=== PATIENT | female | born 1960 | race Caucasian/White ===

== ENCOUNTER 2020-09-08 11:42 | Inpatient (IN) | payer SELFPAY ==
[~2020-09-08] VITALS: Ht 152.4 cm; Wt 52.6 kg
[2020-09-08] MEDS ORDERED: ASPIRIN 81 MG CHEW TAB PO ONE ×2 (12:15→14:45)
[2020-09-08 12:16] LABS: BASOPHILS # (AUTO) 0.1 (0.0-0.1); BASOPHILS % 0.5 % (0.0-1.0); EOSINOPHILS # (AUTO) 0.1 (0.0-0.4); EOSINOPHILS % 0.8 % (0.0-6.0); HEMATOCRIT 42.1 % (34.2-44.1); HEMOGLOBIN 13.9 g/dL (12.0-16.0); LYMPHOCYTES # (AUTO) 3.1 (1.0-3.2); LYMPHOCYTES % 32.3 % (18.0-39.1); MEAN CORPUSCULAR HEMOGLOBIN 30.5 pg (28-32); MEAN CORPUSCULAR VOLUME 92.5 fL (81-99); MONOCYTES # (AUTO) 0.6 (0.2-0.8); MONOCYTES % 5.9 % (4.4-11.3); NEUTROPHILS # (AUTO) 5.8 (2.1-6.9); NEUTROPHILS % 60.2 % (38.7-80.0); PLATELET COUNT 275 x10e3/uL (140-360); RED BLOOD COUNT 4.55 x10e6/uL (3.6-5.1)
[2020-09-08 12:23] LABS: CLARITY,URINE SL CLOUDY (CLEAR); COLOR,URINE YELLOW (YELLOW); LEUKOCYTE ESTERASE ,URINE SMALL (NEGATIVE); NITRITE,URINE NEGATIVE (NEGATIVE)
[2020-09-08 12:24] LABS: BILIRUBIN,URINE SMALL (NEGATIVE); KETONES,URINE NEGATIVE (NEGATIVE); PROTEIN,URINE DIPSTICK 2+ (NEGATIVE); URINE UROBILINOGEN 1 mg/dL (0.2 - 1)
[2020-09-08 12:25] LABS: BACTERIA,URINE RARE /HPF; EPITHELIAL CELLS,URINE FEW /LPF
[2020-09-08 12:26] LABS: INR 1.11; PROTHROMBIN TIME 14.9 seconds (11.9-14.5)
[2020-09-08 12:27] LABS: PARTIAL THROMBOPLASTIN TIME 28.8 seconds (23.8-35.5)
[2020-09-08 12:40] LABS: ALANINE AMINOTRANSFERASE 27 IU/L (0-55); ALBUMIN 4.2 g/dL (3.5-5.0); ALBUMIN/GLOBULIN RATIO 1.1 (0.8-2.0); ALKALINE PHOSPHATASE 78 IU/L (40-150); ANION GAP 17.9 mmol/L (8-16); BLOOD UREA NITROGEN 13 mg/dL (7-26); BUN/CREATININE RATIO 16 (6-25); CALCIUM 9.1 mg/dL (8.4-10.2); CARBON DIOXIDE 20 mmol/L (22-29); CHLORIDE 105 mmol/L (98-107); CREATINE KINASE 96 IU/L (29-168); CREATININE, SERUM 0.79 mg/dL (0.57-1.11); EST GLOMERULAR FILTRATION RATE > 60 ML/MIN (60-); GLUCOSE 104 mg/dL (74-118); POTASSIUM 3.9 mmol/L (3.5-5.1); SODIUM 139 mmol/L (136-145)
--- NOTE | 2020-09-08 13:12 | Diagnostic Imaging Report ---
TECHNIQUE: Frontal view of the chest. INDICATION: ^CHEST PAIN ^[id number] ^1250 ^Y COMPARISON: None DISCUSSION: Limited evaluation due to portable technique. Lines and hardware: None Heart and mediastinum: Marked cardiomegaly is noted. Normal pulmonary vascularity is noted. Lungs and pleura: No focal airspace consolidation. No pleural effusion. No pneumothorax. Soft tissues and bones: No acute abnormality. IMPRESSION: 1. Negative for focal consolidation. 2. Marked cardiomegaly. Signed by: Rigo Breaux MD on 09/08/2020 1:09 PM
[2020-09-08] MEDS ORDERED: METOPROLOL TARTRATE INJ 1 MG/ML VIAL IV ONE (13:15)
[2020-09-08] MEDS ORDERED: FUROSEMIDE INJ 10 MG/ML 4 ML VIAL IV ONE (13:15)
[2020-09-08] MEDS ORDERED: SODIUM CHLORIDE 0.9% 50ML 50 ML ONE ×2 (13:30→21:47)
[2020-09-08] MEDS ORDERED: IOPAMIDOL 370 MG/ML 200 ML INFUS..BTL INJ ONE (13:30)
--- NOTE | 2020-09-08 13:32 | Emergency Department Note ---
History of Present Illnes History of Present Illness Chief Complaint: Chest Pain History of Present Illness This is a 59 year old female . Chief Complaint Comment Patient in from home with complaints of mid-sternal ches t pain and pressure as well as difficulty breathing when laying down off and on over the last couple of months but got worse lately. Patient reports that she gets short of breath when walking and has been having to sleep sitting up. Patient with a history of hypertension and heart burn. In triage patient denies chest pain/pressure. No acute distress noted. Historian: Patient Arrival Mode: Car Onset (how long ago): day(s) Severity: mild Duration (how long): day(s) Progression: worsening Chronicity: new Relieving factors: none Exacerbating factors: none Past Medical/Family History Physician Review I have reviewed the patient's past medical and family history. Any updates have been documented here. Past Medical History Recent Fever: No Clinical Suspicion of Infectio: No New/Unexplained Change in Ment: No Past Medical History: Hypertension, GERD Past Surgical History: Appendectomy Social History Smoking Cessation: Never Smoker Counseling Performed: No Alcohol Use: Social Review of Systems Review of Systems Constitutional: Reports no symptoms EENTM: Reports no symptoms Cardiovascular: Reports as per HPI, Reports chest pain, Reports edema Respiratory: Reports as per HPI, Reports dyspnea, Reports dyspnea on exertion Gastrointestinal: Reports no symptoms Genitourinary: Reports no symptoms Musculoskeletal: Reports no symptoms Integumentary: Reports no symptoms Neurological: Reports no symptoms Psychological: Reports no symptoms Endocrine: Reports no symptoms Hematological/Lymphatic: Reports no symptoms Physical Exam Related Data Allergies: Coded Allergies: No Known Allergies (Unverified , 09/08/20) Triage Vital Signs Vital Signs Date Time Temp Pulse Resp B/P (MAP) Pulse Ox O2 Delivery O2 Flow Rate FiO2 09/08/20 11:56 97.7 121 16 148/106 100 Room Air Vital signs reviewed: Yes Physical Exam CONSTITUTIONAL Constitutional: Present well-developed, Present well-nourished HENT HENT: Present normocephalic, Present atraumatic, Present oropharynx clear/moist, Present nose normal HENT L/R: Present left ext ear normal, Present right ext ear normal EYES Eyes: Reports PERRL, Reports conjunctivae normal NECK Neck: Present ROM normal PULMONARY Pulmonary: Present effort normal, Present respiratory distress CARDIOVASCULAR Cardiovascular: Present regular rhythm, Present heart sounds normal, Present capillary refill normal, Present normal rate, Present tachycardia GASTROINTESTINAL Abdominal: Present soft, Present nontender, Present bowel sounds normal GENITOURINARY Genitourinary: Present exam deferred SKIN Skin: Present warm, Present dry MUSCULOSKELETAL Musculoskeletal: Present ROM normal NEUROLOGICAL Neurological: Present alert, Present oriented x 3, Present no gross motor or sensory deficits PSYCHOLOGICAL Psychological: Present mood/affect normal, Present judgement normal Results Laboratory Result Diagram: 09/08/20 1200 09/08/20 1200 Laboratory Laboratory Tests Test 09/08/20 12:00 White Blood Count 9.67 x10e3/uL (4.8-10.8) Red Blood Count 4.55 x10e6/uL (3.6-5.1) Hemoglobin 13.9 g/dL (12.0-16.0) Hematocrit 42.1 % (34.2-44.1) Mean Corpuscular Volume 92.5 fL (81-99) Mean Corpuscular Hemoglobin 30.5 pg (28-32) Mean Corpuscular Hemoglobin Concent 33.0 g/dL (31-35) Red Cell Distribution Width 14.0 % (11.7-14.4) Platelet Count 275 x10e3/uL (140-360) Neutrophils (%) (Auto) 60.2 % (38.7-80.0) Lymphocytes (%) (Auto) 32.3 % (18.0-39.1) Monocytes (%) (Auto) 5.9 % (4.4-11.3) Eosinophils (%) (Auto) 0.8 % (0.0-6.0) Basophils (%) (Auto) 0.5 % (0.0-1.0) Neutrophils # (Auto) 5.8 (2.1-6.9) Lymphocytes # (Auto) 3.1 (1.0-3.2) Monocytes # (Auto) 0.6 (0.2-0.8) Eosinophils # (Auto) 0.1 (0.0-0.4) Basophils # (Auto) 0.1 (0.0-0.1) Absolute Immature Granulocyte (auto 0.03 x10e3/uL (0-0.1) Prothrombin Time 14.9 seconds (11.9-14.5) Prothromb Time International Ratio 1.11 Activated Partial Thromboplast Time 28.8 seconds (23.8-35.5) Urine Color Yellow (YELLOW) Urine Clarity Sl cloudy (CLEAR) Urine pH 6 (5 - 7) Urine Specific [place] 1.025 (1.010-1.025) Urine Protein 2+ (NEGATIVE) Urine Glucose (UA) Negative (NEGATIVE) Urine Ketones Negative (NEGATIVE) Urine Blood Trace (NEGATIVE) Urine Nitrite Negative (NEGATIVE) Urine Bilirubin Small (NEGATIVE) Urine Urobilinogen 1 mg/dL (0.2 - 1) Urine Leukocyte Esterase Small (NEGATIVE) Urine RBC 6-10 /HPF (0-5) Urine WBC 6-10 /HPF (0-5) Urine Epithelial Cells Few /LPF (NONE) Urine Bacteria Rare /HPF (NONE) Sodium Level 139 mmol/L (136-145) Potassium Level 3.9 mmol/L (3.5-5.1) Chloride Level 105 mmol/L (98-107) Carbon Dioxide Level 20 mmol/L (22-29) Anion Gap 17.9 mmol/L (8-16) Blood Urea Nitrogen 13 mg/dL (7-26) Creatinine 0.79 mg/dL (0.57-1.11) Estimat Glomerular Filtration Rate > 60 ML/MIN (60-) BUN/Creatinine Ratio 16 (6-25) Glucose Level 104 mg/dL (74-118) Calcium Level 9.1 mg/dL (8.4-10.2) Total Bilirubin 1.6 mg/dL (0.2-1.2) Aspartate Amino Transf (AST/SGOT) 30 IU/L (5-34) Alanine Aminotransferase (ALT/SGPT) 27 IU/L (0-55) Alkaline Phosphatase 78 IU/L (40-150) Creatine Kinase 96 IU/L (29-168) Creatine Kinase MB 4.90 ng/mL (0-5.0) Troponin I 0.022 ng/mL (0-0.300) B-Type Natriuretic Peptide 1596.6 pg/mL (0-100) Total Protein 8.1 g/dL (6.5-8.1) Albumin 4.2 g/dL (3.5-5.0) Globulin 3.9 g/dL (2.3-3.5) Albumin/Globulin Ratio 1.1 (0.8-2.0) Lab results reviewed: Yes Imaging Imaging results reviewed: Yes Impressions IMPRESSION: 1. Negative for pulmonary or secondary signs of right heart strain. 2. Small right pleural effusion. 3. Multichamber cardiomegaly with reflux of contrast into the SVC and hepatic veins suggesting cardiac dysfunction. Signed by: Rigo Breaux MD on 09/08/2020 1:40 PM Assessment & Plan Medical Decision Making MDM This patient presents with signs and symptoms consistent with an acute exacerbation CHF, likely due to a new diagnosis of congestive heart failure. Differential diagnosis includes alternate cardiopulmonary causes such as ischemia, PE, pneumothorax, and pneumonia, as well as other causes of dyspnea such as asthma/RAD, COPD, flash pulmonary edema, dysrhythmia but these are less likely. Patient is generally hemodynamically stable. Plan: labs, EKG, CXR, troponin, intravenous diuresis, and electrolyte repletion. Will require admission for IV diuretics and medical optimization. LVEF Failure + dyspnea +LE edema Workup: ECG, CBC, BMP, Troponin, BNP, CXR Findings: EKG: No STEMI and no evidence of Brugadas sign, delta wave, epsilon wave, significantly prolonged QTc, or malignant arrhythmia. BNP: ~1600 CXR: IMPRESSION: 1. Negative for pulmonary or secondary signs of right heart strain. 2. Small right pleural effusion. 3. Multichamber cardiomegaly with reflux of contrast into the SVC and hepatic veins suggesting cardiac dysfunction. Based on history, exam and findings, presentation most consistent with acute on chronic heart failure. Low suspicion for PNA, ACS, tamponade, aortic dissection. Interventions: Oxygen, Diuresis Reassessment: Symptoms improved in ED with oxygen and diuresis Disposition (Stable but not significantly improved): Admit to medicine for further monitoring and for improvement of medication regimen to control symptoms. Assessment & Plan Final Impression: (1) CHF (congestive heart failure) Depart Disposition: ADMITTED Last Vital Signs Date Time Temp Pulse Resp B/P (MAP) Pulse Ox O2 Delivery O2 Flow Rate FiO2 09/08/20 12:10 121 24 09/08/20 11:56 97.7 100 Room Air Medications in the ED Aspirin 81 mg PRN ONCE PO ; Start 09/08/20 at 12:15; Stop 09/08/20 at 12:24; Status DC Furosemide 40 mg ONCE ONCE IV ; Start 09/08/20 at 13:15; Stop 09/08/20 at 13:16; Status UNV Metoprolol Tartrate 5 mg ONCE ONCE IV ; Start 09/08/20 at 13:15; Stop 09/08/20 at 13:16; Status UNV KANWAL MORAN DO Sep 08, 2020 13:32
--- NOTE | 2020-09-08 13:43 | Diagnostic Imaging Report ---
EXAM: CT Chest WITH contrast- Pulmonary Embolism Protocol INDICATION: ^Y ^SOB ^[id number] ^1300 COMPARISON: X-ray dated the same day TECHNIQUE: Chest was scanned utilizing a multidetector helical scanner from the lung apex through the level of the diaphragm after administration of IV contrast. Thin section reconstructions were obtained with special concentration on the pulmonary arteries. Coronal and sagittal reformations were obtained. Pulmonary embolism protocol was performed. IV CONTRAST: 100 cc of Isovue 370 RADIATION DOSE: Total DLP: 298 mGy*cm Dose modulation, iterative reconstruction, and/or weight based adjustment of the mA/kV was utilized to reduce the radiation dose to as low as reasonably achievable. COMPLICATIONS: None FINDINGS: LINES/ TUBES: None. PULMONARY ARTERIES: Main pulmonary artery demonstrates Hounsfield units of 472. Negative for pulmonary arterial embolism to the level of the subsegmental branches. Main pulmonary artery is of normal caliber measuring up to 2.5 cm. LUNGS AND AIRWAYS: Negative for focal consolidation. Large airways are patent. PLEURA: Small right pleural effusion is noted. HEART AND MEDIASTINUM: Visualized thyroid gland is unremarkable. No suspicious axillary lymphadenopathy is noted. Multiple nonenlarged mediastinal lymph nodes are noted. No definite hilar adenopathy is noted. Multichamber enlargement of the heart is noted. Negative for pericardial effusion. Negative for bowing of the interventricular septum. Reflux of contrast is identified in the SVC and hepatic veins suggesting cardiac dysfunction. UPPER ABDOMEN: Unremarkable. BONES: No acute osseous abnormality. Mild to moderate multilevel degenerative changes of the spine are noted. SOFT TISSUES: Unremarkable. IMPRESSION: 1. Negative for pulmonary or secondary signs of right heart strain. 2. Small right pleural effusion. 3. Multichamber cardiomegaly with reflux of contrast into the SVC and hepatic veins suggesting cardiac dysfunction. Signed by: Rigo Breaux MD on 09/08/2020 1:40 PM
--- OUTSIDE RECORDS SUMMARY | 2020-09-08 14:58 | XMS REPORT | Continuity of Care Document ---
Author Author [facility] t Organization [facility] Address [address] [place] [address] Dr. Sutton [address] [place] [phone] Phone Unavailable Care Team Providers Care Python Engineer Name Role Phone Ca MORAN Unavailable Problems This patient has no known problems. Allergies, Adverse Reactions, Alerts This patient has no known allergies or adverse reactions. Medications This patient has no known medications. Procedures This patient has no known procedures. Results Test Description Test Time Test Comments Results Result Comments Source CT CHEST W 2020-09-08 13:31:00 [facility]ENTERName: RIO ZAVALA : 1960 Sex: F [facility] [address] [place] [address] Patient Name: RIO ZAVALA MR #: [id number] : 1960 Age/Sex: 59/F Req #: [id number] Adm Physician: Ordered by: KANWAL MORAN DO Report #: [id number] Location: ER Room/Bed: Procedure: [id number] CT/CT CHEST W Exam Date: 09/08/20 Exam Time: 1300 REPORT STATUS: Signed EXAM: CT Chest WITH contrast- Pulmonary Embolism Protocol INDICATION: Y SOB [id number] 1300 COMPARISON: X- ray dated the same day TECHNIQUE: Chest was scanned utilizing a multidetector helical scanner from the lung apex through the level of the diaphragm after administration of IV contrast. Thin section reconstructions were obtained with special concentration on the pulmonary arteries. Coronal and sagittal reformations were obtained. Pulmonary embolism protocol was performed. IV CONTRAST: 100 cc of Isovue 370 RADIATION DOSE: Total DLP: 298 mGy*cm Dose modulation, iterative reconstruction, and/or weight based adjustment of the mA/kV was utilized to reduce the radiation dose to as low as reasonably achievable. COMPLICATIONS: None FINDINGS: LINES/ TUBES: None. PULMONARY ARTERIES: Main pulmonary artery demonstrates Hounsfield units of 472. Negative for pulmonary arterial embolism to the level of the subsegmental branches. Main pulmonary artery is of normal caliber measuring up to 2.5 cm. LUNGS AND AIRWAYS: Negative for focal consolidation. Large airways are patent. PLEURA: Small right pleural effusion is noted. HEART AND MEDIASTINUM: Visualized thyroid gland is unremarkable. No suspicious axillary lymphadenopathy is noted. Multiple nonenlarged mediastinal lymph nodes are noted. No definite hilar adenopathy is noted. Multichamber enlargement of the heart is noted. Negative for pericardial effusion. Negative for bowing of the interventricular septum. Reflux of contrast is identified in the SVC and hepatic veins suggesting cardiac dysfunction. UPPER ABDOMEN: Unremarkable. BONES: No acute osseous abnormality. Mild to moderate multilevel degenerative changes of the spine are noted. SOFT TISSUES: Unremarkable. IMPRESSION: 1. Negative for pulmonary or secondary signs of right heart strain. 2. Small right pleural effusion. 3. Multichamber cardiomegaly with reflux of contrast into the SVC and hepatic veins suggesting cardiac dysfunction. Signed by: Dayanna Breaux MD on 09/08/2020 1:40 PM Dictated By: DAYANNA BREAUX MD 1340 Transcribed By: EDVIN on 09/08/20 1340 COPY TO: KANWAL MORAN DO CHEST SINGLE (PORTABLE) 2020-09-08 13:08:00 [facility]: RIO ZAVALA : 1960 Sex: F [facility] [address] [place] [address] Patient Name: RIO ZAVALA MR #: [id number] : 1960 Age/Sex: 59/F Req #: [id number] Adm Physician: Ordered by: KANWAL MORAN DO Report #: [id number] Location: ER Room/Bed: Procedure: [id number] DX/CHEST SINGLE (PORTABLE) Exam Date: 09/08/20 Exam Time: 1250 REPORT STATUS: Signed TECHNIQUE: Frontal view of the ch est. INDICATION: CHEST PAIN [id number] 1250 Y COMPARISON: None DISCUSSION: Limited evaluation due to portable technique. Lines and hardware: None Heart and mediastinum: Marked cardiomegaly is noted. Normal pulmonary vascularity is noted. Lungs and pleura: No focal airspace consolidation. No pleural effusion. No pneumothorax. Soft tissues and bones: No acute abnormality. IMPRESSION: 1. Negative for focal consolidation. 2. Marked cardiomegaly. Signed by: Dayanna Breaux MD on 09/08/2020 1:09 PM Dictated By: DAYANNA BREAUX MD 1308 Transcribed By: EDVIN on 09/08/20 130 COPY TO: KANWAL MORAN,
[2020-09-08] MEDS ORDERED: ONDANSETRON HCL INJ 2MG/ML 2ML 2 MG/ML VIAL IV PRN (15:15)
[2020-09-08] MEDS ORDERED: METOPROLOL TARTRATE INJ 1 MG/ML VIAL IV PRN (15:15)
[2020-09-08] MEDS ORDERED: ACETAMINOPHEN 325 MG TAB PO PRN (15:15)
[2020-09-08] MEDS: FUROSEMIDE INJ 10 MG/ML 4 ML VIAL IV SCH (18:50)
--- NOTE | 2020-09-08 18:52 | NUR ---
1st attempt to give report, as per MS2, nurses are at shift change and are not available to take report
--- NOTE | 2020-09-08 19:12 | NUR ---
2nd attempt to call report, MS2 states that the room is still being actively cleaned at the moment
--- NOTE | 2020-09-08 19:47 | NUR ---
RECEIVED PATIENT FROM THE ER, ON TELEMETRY WITH PULSE OX, PATIENT POSITIONED IN BED, NO COMPLAINT OF PAIN, NO DISTRESS NOTED AT THIS TIME. ASSESSMENT TO BE COMPLETED. CALL LIGHT IN REACH.
[2020-09-08 20:00] VITALS: BP 147/96
[2020-09-08] MEDS: CEFTRIAXONE SOD 1 GM/NS 50 ML 50 ML IV SCH (21:00)
[2020-09-08 21:03] LABS: CREATINE KINASE MB 4.4 ng/mL (0-5.0)
--- NOTE | 2020-09-08 22:00 | NUR ---
REPORT GIVEN TO PM NURSE.
[2020-09-08 23:21] VITALS: BP 147/96
[2020-09-08 23:29] VITALS: BP 147/96
[2020-09-09] VITALS (8 sets, daily range): BP systolic 119–143; BP diastolic 81–108
[2020-09-09 00:07] LABS: CREATINE KINASE MB 3.8 ng/mL (0-5.0)
[2020-09-09 05:06] LABS: BASOPHILS # (AUTO) 0.1 (0.0-0.1); BASOPHILS % 0.6 % (0.0-1.0); EOSINOPHILS # (AUTO) 0.2 (0.0-0.4); EOSINOPHILS % 2.1 % (0.0-6.0); HEMATOCRIT 41.3 % (34.2-44.1); HEMOGLOBIN 13.6 g/dL (12.0-16.0); LYMPHOCYTES # (AUTO) 4.1 (1.0-3.2); LYMPHOCYTES % 43.2 % (18.0-39.1); MEAN CORPUSCULAR HEMOGLOBIN 30.3 pg (28-32); MEAN CORPUSCULAR HGB CONC 32.9 g/dL (31-35); MONOCYTES # (AUTO) 0.7 (0.2-0.8); MONOCYTES % 7.2 % (4.4-11.3); NEUTROPHILS # (AUTO) 4.4 (2.1-6.9); NEUTROPHILS % 46.8 % (38.7-80.0); PLATELET COUNT 249 x10e3/uL (140-360); RED BLOOD COUNT 4.49 x10e6/uL (3.6-5.1); RED CELL DISTRIBUTION WIDTH 13.8 % (11.7-14.4)
[2020-09-09 05:33] LABS: ANION GAP 14.1 mmol/L (8-16); BLOOD UREA NITROGEN 15 mg/dL (7-26); BUN/CREATININE RATIO 21 (6-25); CALCIUM 8.7 mg/dL (8.4-10.2); CARBON DIOXIDE 24 mmol/L (22-29); CHLORIDE 103 mmol/L (98-107); CREATININE, SERUM 0.73 mg/dL (0.57-1.11); EST GLOMERULAR FILTRATION RATE > 60 ML/MIN (60-); GLUCOSE 85 mg/dL (74-118); POTASSIUM 3.1 mmol/L (3.5-5.1); SODIUM 138 mmol/L (136-145)
[2020-09-09] MEDS ORDERED: LISINOPRIL10 MG PO (07:12)
[2020-09-09] MEDS ORDERED: FAMOTIDINE 20 MG TAB PO SCH (07:30)
[2020-09-09] MEDS: POTASSIUM CHLORIDE 20 MEQ TAB CR PO SCH ×2 (09:40→17:19)
[2020-09-09] MEDS: FUROSEMIDE INJ 10 MG/ML 4 ML VIAL IV SCH ×2 (09:40→17:19)
[2020-09-09] MEDS ORDERED: POTASSIUM CHLORIDE 20 MEQ TAB CR PO ONE (09:44)
[2020-09-09] MEDS ORDERED: POLYETHYLENE GLYCOL 3350 17 GM PACK PO PRN (09:45)
[2020-09-09] MEDS ORDERED: TEMAZEPAM 7.5 MG CAP PO PRN (09:45)
--- NOTE | 2020-09-09 11:05 | History and Physical ---
CONSULTING PHYSICIAN: Dr. Gallo Archer with Cardiology. PRIMARY CARE PHYSICIAN: Dr. Julian Glover. CHIEF COMPLAINT: Midsternal chest pain and pressure. HISTORY OF PRESENT ILLNESS: The patient is a 59-year-old female, who states she was having the midsternal chest pain and pressure for about a week off and on, but it was worse the last 2 days prior to admission. She states she felt like "a dinner plate was on my chest." She has had insomnia this past week. No contributing factors, but it is alleviating when she is sitting on the couch and leaning forward. PAST MEDICAL HISTORY: Hypertension, gastroesophageal reflux disease, osteoarthritis, fibromyalgia, and seasonal allergies. PAST SURGICAL HISTORY: Appendectomy. FAMILY HISTORY: Mother had lupus and Raynaud. Father had heart disease. Two daughters, systemic lupus erythematosus. SOCIAL HISTORY: The patient lives with her . She is a homemaker. She denies any previous tobacco use. She was drinking beer on occasion, but quit 2 weeks ago. She was smoking marijuana once a week for sleep, but quit that 3 weeks ago. ALLERGIES: NO KNOWN ALLERGIES. HOME MEDICATIONS: The patient takes lisinopril 10 mg daily. REVIEW OF SYSTEMS: CONSTITUTIONAL: Denies weight loss, fever, chills, problems with eyes, ears, nose, or throat. She wears glasses. RESPIRATORY: She has had dyspnea on exertion. No phlegm or cough. No complaints of genitourinary, psychiatric, or integumentary problems. CARDIOVASCULAR: Aforementioned midsternal chest pain as per history of present illness. Orthopnea as per ER physician's note. Dyspnea on exertion. However, the patient denies having any lower extremity edema. GASTROINTESTINAL: The patient states she has noticed that her stomach has been slightly bloated, some mild fluid retention. She has been eating much and some nausea. Last bowel movement was 09/07. MUSCULOSKELETAL: Slight muscle cramp in the left calf in the past few days. NEUROLOGIC: Mild dizziness. ENDOCRINE: No history of diabetes. HEMATOLOGIC/LYMPHATIC: No complaints of bleeding or bruising. PHYSICAL EXAMINATION: VITAL SIGNS: Temperature 97.7, pulse 103, blood pressure 134/88, respirations 20, and oxygen saturation 97% on room air. Height 5 feet 0, weight 116 pounds, BMI 22.65. GENERAL: No acute distress, supine in bed. Sits up easily. LUNGS: Clear to auscultation. Respiratory pattern even and unlabored. No supplemental oxygen. HEENT: EOMI. Oropharynx clear. NECK: Supple. No lymphadenopathy, thyromegaly, or JVD noted. CARDIOVASCULAR: Regular rate and rhythm. No murmur. ABDOMEN: Bowel sounds positive. Soft and nontender. EXTREMITIES: No pitting edema. No clubbing, cyanosis, or signs of DVT. NEUROLOGICAL: GCS 15. Nonfocal. LABORATORY DATA: B-type natriuretic peptide 1616.5. CBC was within normal limits yesterday and today. PT 14.9, INR 1.11, and PTT 28.8. Chemistry essentially within normal limits, but potassium 3.1 (3.9) after Lasix, BUN 15, creatinine 0.73, and estimated GFR greater than 60. Cardiac enzymes negative x3 sets. Troponin I 0.022, 0.024, and 0.026. Urinalysis; slightly cloudy, 2+ protein, trace amount of blood, negative for nitrite, small amount of leukocyte esterase, rbc 6-10, wbc 6-10, few epithelial cells, rare bacteria. Coronavirus PCR collected 09/08 is pending. Preliminary urine culture shows no growth after 18 to 24 hours. IMAGING: Chest x-ray showed mild cardiomegaly. Negative for focal consolidation. CT of the chest 09/08, showed negative for pulmonary or secondary signs of right heart strain, small right pleural effusion, multi chamber cardiomegaly with reflux of contrast into the superior vena cava and hepatic veins suggesting cardiac dysfunction. ASSESSMENT AND PLAN: 1. Acute congestive heart failure with small right pleural effusion. Awaiting final results of echocardiogram. B-type natriuretic peptide 1616.5. No lower extremity edema noted. The patient is on Lasix 40 mg IV b.i.d. along with potassium 20 mEq b.i.d. Cardiology has been consulted. 2. Hypertension with congestive heart failure. Home dose of lisinopril resumed. The patient also has p.r.n. metoprolol for systolic blood pressure greater than 150. One time dose of metoprolol had been given before likely due to heart rate. 3. Acute hypokalemia. Potassium level 3.1. We will replete with 40 mEq potassium chloride p.o. once and ask that magnesium level be drawn tomorrow. 4. Possible acute urinary tract infection, present on admission. Small amount of leukocyte esterase is noted on UA. We will await final urine culture and sensitivity results. Afebrile. WBC 9.42. Rocephin IV has been started daily. 5. Sinus tachycardia, heart rate 103 this morning. One time dose of metoprolol had been given. Monitor closely. 6. Gastroesophageal reflux disease/prophylaxis. Pepcid, ambulatory. History and physical billing code [id number]. Time spent 60 minutes. Dictated by Kei Acevedo, MARINA Julian Candelario MD HWP/MODL /[id number]
--- NOTE | 2020-09-09 13:16 | Consultation ---
DATE OF CONSULTATION: Cardiology Consultation REASON FOR CONSULTATION: Heart failure. HISTORY OF PRESENT ILLNESS: This is a 59-year-old woman with a history of gastroesophageal reflux disease and hypertension, who presented to the emergency department with progressively worsening shortness of breath. She states over the last 2 years she has had episodes of shortness of breath, however, became increasingly more severe 2 days prior to admission. The patient states that she woke up from sleep short of breath with a chest pressure. No exertional symptoms such as chest pain or syncopal events. While here, she was found to have cardiomegaly on the CT scan with evidence of heart failure. PAST MEDICAL HISTORY: As stated above in the HPI. PAST SURGICAL HISTORY: Appendectomy. PAST FAMILY HISTORY: Ischemic heart disease. SOCIAL HISTORY: No current illicit drug, alcohol, or tobacco use. She had occasional beer and marijuana use in the past. ALLERGIES: NO KNOWN DRUG ALLERGIES. MEDICATIONS: See medication reconciliation form. PHYSICAL EXAMINATION: VITAL SIGNS: Temperature is 97.7, heart rate is 103, respirations are 20, blood pressure is 134/88, and oxygen saturation 97% on room air. GENERAL: Well-appearing, in no apparent distress. Alert and oriented x3. HEAD: Normocephalic and atraumatic. EYES: The extraocular muscles are intact. Conjunctivae clear. NECK: No JVD. No bruits. CARDIOVASCULAR: She is tachycardic. Regular rhythm. Murmur at the apex and left lower sternal border. LUNGS: Diminished breath sounds at bases. ABDOMEN: Soft, nontender, and nondistended. EXTREMITIES: No clubbing, cyanosis, or edema. VASCULAR: 2+ pulses. SKIN: Warm, dry, and intact. NEUROLOGIC: No focal deficits noted. Cranial nerves grossly intact. PSYCHIATRIC: Normal mood and affect. LABORATORY DATA: Reviewed. Troponins negative x3. BNP is 1616. Chest CT shows multi chamber cardiomegaly. No pulmonary embolism. Small right pleural effusion. IMPRESSION: 1. Acute systolic congestive heart failure with cardiomegaly. 2. Hypertension. 3. Family history of ischemic heart disease. 4. Pleural effusion. 5. Tachycardia. RECOMMENDATIONS: The patient appears to have acute heart failure. We will check a 2D echocardiogram to assess valvular function and left ventricular function. Continue Lasix for diuresis. Continue lisinopril for afterload reduction. No metoprolol at this point in time due to acute heart failure with decompensation. Can restart soon after adequate diuresis. Replace electrolytes. Continue to monitor on telemetry. The patient potentially will need cardiac catheterization depending on echocardiogram results. DO GEORGINA Khan/JACI /[id number]
[2020-09-09] MEDS ORDERED: POTASSIUM CHLORIDE 20 MEQ TAB CR PO NR (14:45)
[2020-09-09] MEDS: FAMOTIDINE 20 MG/2 ML VIAL IV SCH (17:19)
[2020-09-09] MEDS: DOCUSATE SODIUM 100 MG CAP PO SCH (17:19)
--- NOTE | 2020-09-09 19:23 | NUR ---
WALKING ROUNDS COMPLETE, REPORT GIVEN TO ONCOMING NURSE
[2020-09-09] MEDS: CEFTRIAXONE SOD 1 GM/NS 50 ML 50 ML IV SCH (19:55)
--- NOTE | 2020-09-09 20:00 | NUR ---
Received patient from day nurse, patient is alert and oriented x 3. safety and fall precautions maintained as per hospital protocol: bed in lowest position and locked, needed items beside bed and call mckeon placed close to patient, patient is currently stable will continue to monitor.
[2020-09-10] VITALS (9 sets, daily range): BP systolic 107–135; BP diastolic 82–104
[2020-09-10 05:11] LABS: BASOPHILS # (AUTO) 0.1 (0.0-0.1); BASOPHILS % 0.6 % (0.0-1.0); EOSINOPHILS # (AUTO) 0.3 (0.0-0.4); EOSINOPHILS % 2.8 % (0.0-6.0); HEMATOCRIT 44.7 % (34.2-44.1); HEMOGLOBIN 15.2 g/dL (12.0-16.0); LYMPHOCYTES # (AUTO) 3.9 (1.0-3.2); LYMPHOCYTES % 38.1 % (18.0-39.1); MEAN CORPUSCULAR HEMOGLOBIN 31.8 pg (28-32); MEAN CORPUSCULAR VOLUME 93.5 fL (81-99); MONOCYTES # (AUTO) 0.9 (0.2-0.8); MONOCYTES % 8.4 % (4.4-11.3); NEUTROPHILS # (AUTO) 5.1 (2.1-6.9); NEUTROPHILS % 49.8 % (38.7-80.0); PLATELET COUNT 269 x10e3/uL (140-360); RED BLOOD COUNT 4.78 x10e6/uL (3.6-5.1); RED CELL DISTRIBUTION WIDTH 13.9 % (11.7-14.4)
[2020-09-10 05:28] LABS: ANION GAP 13.5 mmol/L (8-16); BLOOD UREA NITROGEN 18 mg/dL (7-26); BUN/CREATININE RATIO 25 (6-25); CALCIUM 8.9 mg/dL (8.4-10.2); CARBON DIOXIDE 26 mmol/L (22-29); CHLORIDE 102 mmol/L (98-107); CHOL/HDL RATIO 4.8 (3.0-3.6); CHOLESTEROL 143 MD/DL (0-199); CREATININE, SERUM 0.73 mg/dL (0.57-1.11); EST GLOMERULAR FILTRATION RATE > 60 ML/MIN (60-); GLUCOSE 103 mg/dL (74-118); HDL CHOLESTEROL 30 MG/DL (40-60); LDL CHOLESTEROL 96 MG/DL (60-130); MAGNESIUM 1.8 MG/DL (1.3-2.1); PHOSPHORUS 3.9 MG/DL (2.3-4.7); POTASSIUM 3.5 mmol/L (3.5-5.1); SODIUM 138 mmol/L (136-145); TRIGLYCERIDES 84 MG/DL (0-149)
[2020-09-10 05:54] LABS: THYROID STIMULATING HORMONE 0.858 uIU/mL (0.350-4.940)
--- NOTE | 2020-09-10 07:00 | NUR ---
BEDSIDE SHIFT REPORT RECEIVED FROM THE MILIEU TECHNICIAN RN. EDUCATED PT ABOUT FALL PRECAUTIONS. PT VERBALIZED UNDERSTANDING. CALL LIGHT WITH IN EASY REACH. INSTRUCTED PT TO USE CALL LIGHT FOR ALL THE NEEDS. BED IS LOW AND LOCKED. SIDE RAILS X2. BED ALARM IS ON. ALL SAFETY MEASURES IN PLACE. PT DENIES NEEDS AT THIS TIME.
[2020-09-10] MEDS: FUROSEMIDE INJ 10 MG/ML 4 ML VIAL IV SCH ×3 (09:06→17:01)
[2020-09-10] MEDS: FAMOTIDINE 20 MG/2 ML VIAL IV SCH ×2 (09:06→17:01)
[2020-09-10] MEDS: POTASSIUM CHLORIDE 20 MEQ TAB CR PO SCH ×2 (09:07→17:01)
[2020-09-10] MEDS: DOCUSATE SODIUM 100 MG CAP PO SCH ×2 (09:07→17:01)
[2020-09-10] MEDS: LISINOPRIL 10 MG TAB PO SCH (09:07)
--- NOTE | 2020-09-10 09:10 | NUR ---
REPORTED PT HR [address] HERNÁNDEZ.
[2020-09-10] MEDS: CARVEDILOL 3.125 MG TAB PO SCH ×2 (10:20→17:01)
[2020-09-10] MEDS ORDERED: ACETAMIN/BUTALBITAL/CAFFEINE TAB PO PRN (11:00)
[2020-09-10] MEDS ORDERED: ONDANSETRON HCL 4 MG ORAL DISINTEGRATING TAB PO PRN (11:45)
[2020-09-10] MEDS ORDERED: POTASSIUM CHLORIDE 10MEQ EA PO ONE (12:00)
--- NOTE | 2020-09-10 12:41 | Progress Note ---
DATE: Cardiology Progress Note SUBJECTIVE: The patient is feeling better. Less short of breath. No chest pain. OBJECTIVE: VITAL SIGNS: Temperature is 97.5, heart rate is 111, respiratory rate is 17, blood pressure is 135/104, and oxygen saturation 98% on room air. GENERAL: Well-appearing, in no apparent distress. CARDIOVASCULAR: Tachycardic. Regular rhythm. LUNGS: Diminished breath sounds at the bases. ABDOMEN: Soft, nontender, and nondistended. EXTREMITIES: No edema. CARDIOVASCULAR MEDICATIONS: Reviewed. LABORATORY DATA: Reviewed. Creatinine 0.73. Telemetry monitoring showed sinus tachycardia. A 2D echocardiogram showed left ventricular ejection fraction less than 20% with moderate mitral regurgitation. IMPRESSION: 1. Acute systolic congestive heart failure. 2. Mitral regurgitation. 3. Hypertension. 4. Family history of ischemic heart disease. 5. Pleural effusion. 6. Tachycardia. RECOMMENDATIONS: The patient appears somewhat better compensated. Left ventricular ejection fraction is severely reduced with an estimated ejection fraction of less than 20%. Continue lisinopril for afterload reduction. We will start carvedilol today. We will increase Lasix for better diuresis. Monitor on telemetry. The patient will need cardiac catheterization tomorrow. Social work will need to evaluate her for possible gold card and LifeVest placement. DO GEORGINA Khan/MODL /[id number]
--- NOTE | 2020-09-10 13:13 | NUR ---
GAVE PACKET OF INFORMATION WITH COMMUNITY [employer]OURCES FOR ASSISTANCE WITH LOW TO NO INCOME TO PATIENT. RESOURCES THAT PATIENT MAY BE ABLE TO FOLLOW UP UPON DISCHARGE. PT EDUCATED ON EACH RESOURCE AND UNDERSTANDING HOW TO FOLLOW UP TO SEE IF QUALIFIED FOR EACH RESOURCE.
--- NOTE | 2020-09-10 14:12 | Progress Note ---
DATE: CONSULTING PHYSICIAN: Dr. Gallo Archer with Cardiology. SUBJECTIVE: The patient still has dyspnea on exertion, mild fluid retention in the abdomen. She did have a bowel movement this morning and is no longer having left calf cramps. Her is at the bedside and I briefly discussed congestive heart failure with them. In general, explained ejection fraction, its meaning and talked about the left heart catheterization that is planned for tomorrow. Orders have been entered by Cardiology Service for n.p.o. after midnight. PHYSICAL EXAMINATION: VITAL SIGNS: Temperature 97.5, pulse 111, about 10:20 in the morning heart rate listed as 122 per the chemical engineering technician, heart rate now 114, blood pressure 135/104, respirations 17, and oxygen saturation 98% on room air. GENERAL: No distress, supine in bed, sitting up easily. LUNGS: Clear to auscultation. Respirations even and nonlabored. HEENT: EOMI. NECK: Supple. CARDIOVASCULAR: Regular rate and rhythm without murmur. ABDOMEN: Bowel sounds positive. Soft and nontender. Slightly swollen, likely due to fluid retention. EXTREMITIES: With no pitting edema. No clubbing, cyanosis, or signs of DVT. No fluid retention in extremities noted. NEUROLOGICAL: GCS 15. Nonfocal. LABORATORY DATA: WBCs 10.14 (9.42), hemoglobin 15.2, hematocrit 44.7, and platelets 269. Sodium 138, potassium 3.5 (3.1), chloride 102, CO2 26, BUN 18, creatinine 0.73, estimated GFR greater than 60, glucose 103, hemoglobin A1c 5.1%, calcium 8.9, phosphorus 3.9, and magnesium 1.8. Triglycerides 84, cholesterol 143, LDL 96, HDL 30, and TSH 0.858. Coronavirus PCR collected 09/08, was not detected. Final urine culture collected 09/08, 10,000 to 50,000 CFU per mL lactobacilli, diphtheroids, i.e., negative. IMAGING/OTHER: 09/08, preliminary echocardiogram results with ejection fraction of 25% to 30%. ASSESSMENT AND PLAN: 1. Acute systolic congestive heart failure with ejection fraction 25% to 30%, small right pleural effusion and cardiomegaly. Admitting B-type natriuretic peptide 1616.5. Cardiology following. Coreg started. She is now on Lasix 40 mg IV q.6 hours. Left heart catheterization planned for tomorrow. Continue fluid restriction of 1.2 L per day. We will enter order for dietitian regarding teaching for fluid restriction as well as low-sodium cardiac diet given her new diagnosis of systolic congestive heart failure. 2. Hypertension with congestive heart failure. Home dose of lisinopril continues for afterload reduction. Metoprolol held due to heart failure with decompensation. 3. Acute hypokalemia. Potassium level 3.5 (3.1), 20 mEq p.o. once ordered by Dr. Olmedo with Cardiology. I have increased the potassium chloride to 40 mEq b.i.d. given that the Lasix has been increased to 40 mEq IV every 6 hours. Reassess potassium tomorrow. 4. Possible acute urinary tract infection, present on admission. Small amount of leukocyte esterase noted on UA, however, final urine culture and sensitivity essentially negative. We will discontinue the Rocephin. 5. Sinus tachycardia. Heart rate 114 this morning. Metoprolol is on hold due to heart failure with decompensation. Should be able to resume this once some fluid has been removed. Monitor closely. 6. Gastroesophageal reflux disease/prophylaxis. Pepcid, ambulatory. Inpatient, billing code [id number], time spent greater than 35 minutes. Dictated by Kei Acevedo NP MD NE[facility] PearsonP/MODL /[id number]
[2020-09-10] MEDS ORDERED: POTASSIUM CHLORIDE 20 MEQ TAB CR PO SCH (17:00)
--- NOTE | 2020-09-10 19:12 | NUR ---
BEDSIDE SHIFT REPORT GIVEN TO THE DIGESTER COOK RN. PT DENIED FURTHER NEEDS.
--- NOTE | 2020-09-10 19:15 | NUR ---
Patient received sitting up in bed. AAO x 4. Patient had no complaints of pain. Respirations even and non-labored. Safety measures in place. Patient instructed to call for assistance when needed. Call light within reach.
[2020-09-11] VITALS (15 sets, daily range): BP systolic 93–122; BP diastolic 73–84
[2020-09-11] MEDS: FUROSEMIDE INJ 10 MG/ML 4 ML VIAL IV SCH ×4 (00:45→17:23)
[2020-09-11 05:11] LABS: BASOPHILS # (AUTO) 0.1 (0.0-0.1); BASOPHILS % 0.7 % (0.0-1.0); EOSINOPHILS # (AUTO) 0.3 (0.0-0.4); HEMATOCRIT 46.9 % (34.2-44.1); HEMOGLOBIN 15.9 g/dL (12.0-16.0); LYMPHOCYTES % 38.8 % (18.0-39.1); MEAN CORPUSCULAR HEMOGLOBIN 31.5 pg (28-32); MEAN CORPUSCULAR HGB CONC 33.9 g/dL (31-35); MEAN CORPUSCULAR VOLUME 92.9 fL (81-99); MONOCYTES # (AUTO) 0.9 (0.2-0.8); MONOCYTES % 8.5 % (4.4-11.3); NEUTROPHILS % 48.7 % (38.7-80.0); PLATELET COUNT 313 x10e3/uL (140-360); RED BLOOD COUNT 5.05 x10e6/uL (3.6-5.1); RED CELL DISTRIBUTION WIDTH 13.8 % (11.7-14.4)
[2020-09-11 05:30] LABS: BLOOD UREA NITROGEN 27 mg/dL (7-26); BUN/CREATININE RATIO 30 (6-25); CALCIUM 9.4 mg/dL (8.4-10.2); CARBON DIOXIDE 23 mmol/L (22-29); CHLORIDE 104 mmol/L (98-107); EST GLOMERULAR FILTRATION RATE > 60 ML/MIN (60-); GLUCOSE 105 mg/dL (74-118); SODIUM 139 mmol/L (136-145)
--- NOTE | 2020-09-11 06:59 | NUR ---
Shift report given to oncoming nurse.
--- NOTE | 2020-09-11 07:00 | NUR ---
BEDSIDE SHIFT REPORT RECEIVED FROM THE SUBSTATION OPERATOR TRANSFORMING RN. EDUCATED PT ABOUT FALL PRECAUTIONS. PT VERBALIZED UNDERSTANDING. CALL LIGHT WITH IN EASY REACH. INSTRUCTED PT TO USE CALL LIGHT FOR ALL THE NEEDS. BED IS LOW AND LOCKED. SIDE RAILS X2. ALL SAFETY MEASURES IN PLACE. PT DENIES NEEDS AT THIS TIME.
[2020-09-11] MEDS: CARVEDILOL 3.125 MG TAB PO SCH ×2 (07:57→17:23)
[2020-09-11] MEDS: FAMOTIDINE 20 MG/2 ML VIAL IV SCH ×2 (07:57→17:22)
--- NOTE | 2020-09-11 08:00 | NUR ---
PT OFF UNIT TO BORDER PATROL AGENT IN SAFE CONDITION.
[2020-09-11] MEDS ORDERED: MIDAZOLAM HCL 2 MG/2 ML VIAL ONE (08:46)
[2020-09-11] MEDS ORDERED: FENTANYL CITRATE/PF 100MCG/2 ML INJ ONE (08:46)
[2020-09-11] MEDS ORDERED: IOPAMIDOL 370 MG/ML 200 ML INFUS..BTL INJ ONE (08:47)
[2020-09-11] MEDS ORDERED: HEPARIN SOD/SOD CHLORIDE 2,000 ML ONE (08:47)
[2020-09-11] MEDS ORDERED: LIDOCAINE HCL 2% LOCAL 20 ML VIAL ONE (08:47)
[2020-09-11] MEDS ORDERED: SODIUM CHLORIDE 0.9% 1000ML 1,000 ML ONE (08:48)
[2020-09-11] MEDS: DOCUSATE SODIUM 100 MG CAP PO SCH ×2 (09:00→17:22)
--- NOTE | 2020-09-11 09:17 | NUR ---
0917a Recovery phase initiated Rm # 9. Identiferx2,bedside report received from Bryan Ernst RN. Alert oriented and appropriate, PERRLA, respirations even and unlabored to room air. Pulses x4 extremities present palpable.. Edema 2+ bilateral.. No s/s of hematoma or gross abnormality 5F cath in place Ondina RN at bedside to pull cath.to RT femoral site 15min hold with stasis achieved and Tegederm 2x2 dressing in place. Downtime till 145pm.. Skin warm and dry integrity appears intact. IV left ac saline locked. Presents healthy w/o s/s of infiltration or complaint. Abdomen soft and supple. pt offered toileting, denies need to urinate or defecate. Pt understanding of POC. Bedside monitoring initiated. Currently w/o complaint of pain or need. Call light within reach, bed low and locked, side rails up x2. pt using personal mask for COVID-19 mitigation. ds/rn
--- NOTE | 2020-09-11 09:20 | NUR ---
0920 SHEATH PULL IN RT GROIN IN PROGRESS Josiah RN puller and stasis achieved at 0930 down time till 1345pm. Tegaderm dressing in place with 2x2 Bilateral pedal pulses present. 0920 B/p 107/77 SD 101 16 93% RA No gross issues pain,pallor,pressure dysrhythmia. 0925 B/p 107/67 SD 104 21 92% RA " 0930 B/p 107/78 SD 102 22 93% Ra " 0945 Report phone to bedside nurse. ds/rn
--- NOTE | 2020-09-11 09:45 | NUR ---
0945a Hand off report phoned and pt transferred back in bed to floor on tele and report to tele room. Pt left in room with RN bed brakes on and bed in low position and call light at bedside with call light at bedside pt aware down time 1345p,No gross issue pain,pallor,pressure or dysrhythmia. ds/rn
--- NOTE | 2020-09-11 10:05 | NUR ---
PT IS BACK TO THE UNIT FROM MANAGER PULMONARY. PT IS AAOX3. AT BEDSIDE. RIGHT GROIN SITE IS CDI. PT IS LYING ON BED STRAIGHT TILL 1345. PT VERBALIZED UNDERSTANDING. PT DENIES NEEDS AT THIS TIME.
--- NOTE | 2020-09-11 10:06 | Operative Report ---
DATE OF PROCEDURE: 09/11/2020 SURGEON: Bryson Olmedo DO PROCEDURES PERFORMED: 1. Conscious sedation, 30 minutes. 2. Selective coronary angiography x2. 3. Left heart catheterization. PRE-PROCEDURE DIAGNOSIS: Systolic congestive heart failure. POST-PROCEDURE DIAGNOSIS: 1. Systolic congestive heart failure. 2. Nonischemic cardiomyopathy. ESTIMATED BLOOD LOSS: Less than 10 mL. SPECIMENS REMOVED: None. PROCEDURE IN DETAIL: After informed consent was obtained, the patient was brought to the cardiac catheterization laboratory in a fasting and nonsedated state. Bilateral groins were prepped and draped in usual sterile fashion. The patient received fentanyl and midazolam administered by the slabbing machine operator nurse and her neurologic and physiologic status was monitored by myself and slabbing machine operator staff for 30 minutes. A 2% lidocaine was infiltrated to the right anterior groin for local anesthesia. Using micropuncture needle, the right common femoral artery was accessed via modified Seldinger technique and a 5-Croatian sheath was placed. Next, diagnostic selective angiography and left heart catheterization were performed using a JL4 and JR4 catheters. The patient tolerated the procedure well with no immediate complications and was transferred back to her room in stable condition. Hemostasis will be achieved via manual pressure. PROCEDURAL FINDINGS: 1. The left main, left anterior descending, diagonal branches, and left circumflex coronary system are free of significant coronary artery disease. The left circumflex is dominant vessel and provides posterior descending coronary artery in addition to two obtuse marginal vessels. The first of which is bifurcating with a superior and inferior branch. 2. The right coronary artery is small and nondominant without significant disease. 3. Left ventricular end-diastolic pressure was 20-25 mmHg. No aortic valve gradient present upon pullback. IMPRESSION: Nonischemic cardiomyopathy. RECOMMENDATIONS: Medical therapy. Bryson Olmedo DO BM/MODL /[id number]
[2020-09-11] MEDS: POTASSIUM CHLORIDE 20 MEQ TAB CR PO SCH (10:38)
[2020-09-11] MEDS: LISINOPRIL 10 MG TAB PO SCH (10:38)
--- NOTE | 2020-09-11 13:32 | NUR ---
allopathic doctor visited the pt and family .provided pastoral comfort , hope building and prayer They appreciated allopathic doctor support and expressed hope and peace chaplain Tamara
--- NOTE | 2020-09-11 16:30 | NUR ---
CALL RECEIVED FROM [facility]. PAGED DR. HERNÁNDEZ AND REPORTED THE SAME. OKAY TO FAX DOCUMENTS NEEDED FOR [facility].
--- NOTE | 2020-09-11 16:43 | NUR ---
Nutrition Screen Note RD Recommendation for Physician: -Continue cardiac diet Plan of Care: RD following, monitoring for tolerance and adequacy Nutrition reason for involvement: Diagnosis CHF and consult for low sodium/1.2 L fluid restriction diet education Primary Diagnose(s): CHF exacerbation PMH: Hypertension, gastroesophageal reflux disease, osteoarthritis, fibromyalgia, and seasonal allergies. Ht: 60 in Wt: 116 lb BMI: 22.7 kg/m2 IBW:[address] Assessment: (09/11/20) Chart reviewed. Labs and meds reviewed. Pt is a 59 year old female admitted with CHF exacerbation. Pt reports eating >50% of her meals. No weight loss reported and pt mentioned she usually weighs 116-117 lbs. No N/V/D/C or chewing/swallowing issues. RD discussed and provided written materials regarding following a low sodium diet for CHF and 1.2 L fluid restriction as requested. Pt verbalized understanding. Will continue to monitor. Current Diet: cardiac Malnutrition Evaluation (09/11/20) The patient does not meet criteria for a specified degree of malnutrition at this time. Will re-evaluate at follow-up as appropriate. Diet Education Needs Assessment: Diet education indicated, Learner(s): pt and family member at bedside Barriers: no barriers identified Cultural/Language Modifications: no cultural/language modifications Readiness: eager/acceptance Method: explanation/discussion/handout Topics: low sodium diet for CHF and 1.2 L fluid restriction Understanding/Compliance: pt verbalized understanding Nutrition Care Level: low Signed: Sravanthi Loo, RD, LD
--- NOTE | 2020-09-11 17:03 | Progress Note ---
DATE: Cardiology Progress Note SUBJECTIVE: The patient is feeling better. Denies any chest pain or shortness of breath. OBJECTIVE: VITAL SIGNS: Temperature is 98.1, heart rate 96, respirations 18, blood pressure is 102/77, and oxygen saturation 96% on room air. GENERAL: Well-appearing, in no apparent distress. CARDIOVASCULAR: Regular rate and rhythm. LUNGS: Clear to auscultation. ABDOMEN: Soft, nontender, and nondistended. EXTREMITIES: No edema. CARDIOVASCULAR MEDICATIONS: Reviewed. LABORATORY DATA: Reviewed. IMPRESSION: 1. Dilated cardiomyopathy. 2. Nonischemic cardiomyopathy. 3. Acute systolic congestive heart failure. 4. Hypertension. 5. Mitral regurgitation. RECOMMENDATIONS: Cardiac catheterization today showed no significant coronary artery disease. Continue current cardiovascular medications. Titrate for improvement of her vital signs. Monitor on telemetry. The patient will need LifeVest prior to discharge. DO GEORGINA Khan/MODL /[id number]
--- NOTE | 2020-09-11 18:52 | NUR ---
BEDSIDE SHIFT REPORT GIVEN TO THE BACKUP ADMINISTRATOR RN. PT DENIED FURTHER NEEDS.
--- NOTE | 2020-09-11 19:12 | NUR ---
Patient received sitting up in bed. AAO x 4. No acute distress noted. Dressing to right groin CDI. Safety measures implemented. Call light within reach.
[2020-09-12] VITALS (8 sets, daily range): BP systolic 93–117; BP diastolic 72–82
[2020-09-12] MEDS: FUROSEMIDE INJ 10 MG/ML 4 ML VIAL IV SCH ×4 (00:33→17:44)
[2020-09-12 04:59] LABS: BASOPHILS # (AUTO) 0.1 (0.0-0.1); BASOPHILS % 0.8 % (0.0-1.0); EOSINOPHILS # (AUTO) 0.2 (0.0-0.4); EOSINOPHILS % 2.5 % (0.0-6.0); HEMATOCRIT 48.1 % (34.2-44.1); LYMPHOCYTES # (AUTO) 3.7 (1.0-3.2); LYMPHOCYTES % 38.6 % (18.0-39.1); MEAN CORPUSCULAR HEMOGLOBIN 30.9 pg (28-32); MEAN CORPUSCULAR HGB CONC 33.3 g/dL (31-35); MEAN CORPUSCULAR VOLUME 92.9 fL (81-99); MONOCYTES # (AUTO) 0.8 (0.2-0.8); NEUTROPHILS # (AUTO) 4.8 (2.1-6.9); NEUTROPHILS % 49.8 % (38.7-80.0); PLATELET COUNT 332 x10e3/uL (140-360); RED BLOOD COUNT 5.18 x10e6/uL (3.6-5.1); RED CELL DISTRIBUTION WIDTH 13.7 % (11.7-14.4)
[2020-09-12 05:25] LABS: ANION GAP 14.8 mmol/L (8-16); BLOOD UREA NITROGEN 32 mg/dL (7-26); BUN/CREATININE RATIO 35 (6-25); CALCIUM 9.5 mg/dL (8.4-10.2); CARBON DIOXIDE 25 mmol/L (22-29); CHLORIDE 100 mmol/L (98-107); CREATININE, SERUM 0.91 mg/dL (0.57-1.11); EST GLOMERULAR FILTRATION RATE > 60 ML/MIN (60-); GLUCOSE 104 mg/dL (74-118); MAGNESIUM 1.9 MG/DL (1.3-2.1); POTASSIUM 3.8 mmol/L (3.5-5.1); SODIUM 136 mmol/L (136-145)
--- NOTE | 2020-09-12 07:00 | NUR ---
Patient resting comfortably. Walking rounds done. Shift report given to oncoming nurse regarding patient's status.
--- NOTE | 2020-09-12 07:00 | NUR ---
BEDSIDE SHIFT REPORT RECEIVED FROM THE PERFORMANCE TEST ENGINEER RN. EDUCATED PT ABOUT FALL PRECAUTIONS. PT VERBALIZED UNDERSTANDING. CALL LIGHT WITH IN EASY REACH. INSTRUCTED PT TO USE CALL LIGHT FOR ALL THE NEEDS. BED IS LOW AND LOCKED. SIDE RAILS X2. PT DENIES NEEDS AT THIS TIME.
[2020-09-12] MEDS: DOCUSATE SODIUM 100 MG CAP PO SCH ×2 (08:29→17:44)
[2020-09-12] MEDS: CARVEDILOL 3.125 MG TAB PO SCH ×2 (08:30→17:44)
[2020-09-12] MEDS: LISINOPRIL 10 MG TAB PO SCH (08:30)
[2020-09-12] MEDS: FAMOTIDINE 20 MG/2 ML VIAL IV SCH ×2 (08:31→17:44)
[2020-09-12] MEDS ORDERED: POTASSIUM CHLORIDE 20 MEQ TAB CR PO SCH (09:00)
--- NOTE | 2020-09-12 15:30 | NUR ---
Per Vineet with [facility], pt will probably not get approved until Tuesday. Said if ok with Dr. Olmedo, pt can dc home and they can fit her at home once she gets approved. KIKI Lamar was updated and will call Dr. Olmedo for clearance to dc.
--- NOTE | 2020-09-12 18:59 | Progress Note ---
DATE: Cardiology Progress Note SUBJECTIVE: The patient feels better. Denies any chest pain, shortness of breath, or palpitations. OBJECTIVE: VITAL SIGNS: Temperature is 97.4, heart rate 97, respirations are 16, blood pressure is 98/76, and oxygen saturation 98% on room air. GENERAL: Well appearing, in no apparent distress. CARDIOVASCULAR: Regular rate and rhythm with a systolic murmur at the apex. LUNGS: Clear to auscultation. ABDOMEN: Soft, nontender, nondistended. EXTREMITIES: No clubbing, cyanosis, or edema. VASCULAR: 2+ pulses. LABORATORY DATA: Reviewed. Hemoglobin 16, creatinine 0.91. Telemetry monitoring shows sinus rhythm to sinus tachycardia. IMPRESSION: 1. Dilated cardiomyopathy. 2. Nonischemic cardiomyopathy. 3. Acute systolic congestive heart failure. 4. Hypertension. 5. Mitral regurgitation. RECOMMENDATION: Coronary angiography showed no significant coronary artery disease. Continue current cardiovascular medications with titration for her heart failure. The patient will need LifeVest and can be arranged as an outpatient. The patient is stable for discharge from a cardiovascular standpoint with outpatient followup. DO GEORGINA Khan/CAROLL /[id number]
--- NOTE | 2020-09-12 19:00 | NUR ---
BEDSIDE SHIFT REPORT GIVEN TO THE OVERHEAD CLEANER MAINTAINER RN. PT DENIED FURTHER NEEDS.
[2020-09-12] MEDS ORDERED: LISINOPRIL5 MG PO (19:03)
[2020-09-12] MEDS ORDERED: LASIX40 MG PO (19:03)
[2020-09-12] MEDS ORDERED: KLOR-CON M2020 MEQ PO (19:03)
[2020-09-12] MEDS ORDERED: COREG3.125 MG PO (19:03)
--- NOTE | 2020-09-12 20:15 | NUR ---
Patient given verbal and written discharge instructions. Patient verbalized understanding. IV removed with tip intact. Telemetry box taken off patient. Patient declined use of wheelchair to private auto. Patient in stable condition. Vital signs WNL.
--- NOTE | 2020-09-13 01:00 | Discharge Summary ---
CONSULTING PHYSICIANS: Dr. Gallo Archer. PRIMARY CARE PHYSICIAN: Dr. Julian Glover. CHIEF COMPLAINT: Midsternal chest pain and pressure. HISTORY OF PRESENT ILLNESS: The patient is a 59-year-old female, who states she was having the midsternal chest pain and pressure for about a week off and on, but it was worse in the last 2 days prior to admission. She stated that she felt like a "a dinner plate was on my chest." She has had insomnia over the past week. No contributing factors, but it is alleviating when she is sitting on the couch and leaning forward. Please see dictated history and physical, which was done on 09/09/2020, for past medical history, surgical history, family history, social history. ALLERGIES: SHE HAS NO KNOWN ALLERGIES. HOME MEDICATIONS: Include lisinopril 10 mg daily. ADMITTING DIAGNOSES: 1. Acute congestive heart failure with small right pleural effusion. 2. Hypertension with congestive heart failure. 3. Acute hypokalemia. 4. Possible acute urinary tract infection, present on admission. 5. Sinus tachycardia, heart rate 103. 6. Gastroesophageal reflux disease/prophylaxis. DISCHARGE DIAGNOSES: 1. Dilated cardiomyopathy. 2. Nonischemic cardiomyopathy. 3. Acute systolic congestive heart failure. 4. Hypertension with congestive heart failure. 5. Mitral regurgitation. 6. Acute hypokalemia, resolved. 7. Sinus tachycardia. HOSPITAL COURSE: On admission; B-type natriuretic peptide 1616.5, although she did not have lower extremity edema. There was some edema in the abdomen area. The patient was on Lasix 40 mg IV q.6 hours as well as potassium. Lisinopril was continued for afterload reduction. Her blood pressure was a bit low today and after discussing with Dr. Olmedo with Cardiology, we will decrease her home lisinopril dose to 5 mg daily. Continue Coreg 3.125 mg b.i.d. She will be on Lasix 40 mg p.o. b.i.d. as well as Klor-Con 40 mEq p.o. daily. CBC was within normal limits. Chemistry generally within normal limits with potassium 3.1 initially after Lasix, BUN 15, creatinine 0.73, and estimated GFR greater than 60. Chest x-ray had shown mild cardiomegaly, but negative for focal consolidation. CT of the chest on 09/08 showed negative for pulmonary or secondary signs of right heart strain, small right pleural effusion was present, multichamber cardiomegaly with reflux of contrast into the superior vena cava and hepatic veins suggesting cardiac dysfunction. Her metoprolol was held due to heart failure and decompensation. The patient had a left heart catheterization on 09/[address] Olmedo. It did not show coronary artery disease. Postprocedure diagnoses, systolic congestive heart failure and nonischemic cardiomyopathy. Echocardiogram on 09/08, shown estimated ejection fraction of 25% to 30%. Left ventricular end-diastolic pressure during the left heart catheterization was 20 to 25 mmHg. There are plans for LifeVest to be fitted to the patient on Tuesday. Case has been discussed with Dr. Olmedo with Cardiology and it is safe for her to be discharged home at this point and be fitted for the LifeVest on Tuesday. Continue cardiac diet. Activity level as tolerated. Follow up with Dr. Glover, her PCP in 1 to 2 weeks. Follow up with Dr. Archer within 2 weeks. Today vital signs; temperature 97.7, pulse 105, blood pressure 98/73 earlier this morning, most recent blood pressure is documented 109/80, heart rate 104, respirations 17, oxygen saturation 99%. WBC is 9.54, hemoglobin 16, hematocrit 48.1, and platelets 332. Sodium 136, potassium 3.8, chloride 100, CO2 of 25, BUN 32, creatinine 0.91, estimated GFR greater than 60, glucose 104. Hemoglobin A1c 5.1%, calcium 9.5, magnesium 1.9. Dictated by Kei Acevedo NP Julian Candelario MD HWP/MODL /[id number]
== END 2020-09-12 20:15 | disposition home or self-care (01) | DRG 286 ==
LOC: ER 12:12 → ERHOLD 14:54 → MED/SURG2 19:40
PROVIDERS: ADMIT Internal Medicine; ATTEND Internal Medicine
PROC: 4A023N7 Measurement of Cardiac Sampling and Pressure, Left Heart, Percutaneous Approach (ICD-10-PCS; principal; 2020-09-11)
PROC: B2111ZZ Fluoroscopy of Multiple Coronary Arteries using Low Osmolar Contrast (ICD-10-PCS; 2020-09-11)
PROC: B2151ZZ Fluoroscopy of Left Heart using Low Osmolar Contrast (ICD-10-PCS; 2020-09-11)
DX: I11.0 Hypertensive heart disease with heart failure (principal); I50.21 Acute systolic (congestive) heart failure; N39.0 Urinary tract infection, site not specified; I34.0 Nonrheumatic mitral (valve) insufficiency; R00.0 Tachycardia, unspecified; E87.6 Hypokalemia; I42.8 Other cardiomyopathies; Z11.59 Encounter for screening for other viral diseases; K21.9 Gastro-esophageal reflux disease without esophagitis
CPT/HCPCS: 36415; 71045; 71260; 80048; 80053; 80061; 81001; 82550; 82553; 83036; 83735; 83880; 84100; 84443; 84484; 85025; 85610; 85730; 87086; 93005; 93306; 93458; 99152; 99285; C1769; J0696; J1940; J2001; J2250; J3010; J7030; Q9967